=== PATIENT | female | born 1955 | race Caucasian/White ===

== ENCOUNTER 2022-08-15 09:55 | Outpatient (CLI) | payer MEDICARE, BC ==
[2022-08-15 11:09] LABS: Hemoglobin 9.3 g/dL (12.0-15.5); Mean Corpuscular HGB CONC 29.9 g/dL (32.0-36.0); Mean Corpuscular Hemoglobin 24.1 pg (27.0-33.0); Mean Corpuscular Volume 80.6 fl (81.6-98.3); Platelet Count 301 10x3/uL (150-450); Red Blood Cell (RBC) Count 3.86 10x6/uL (3.90-5.03); White Blood Cell (WBC) Count 6.8 10x3/uL (3.5-10.5)
[2022-08-15 11:22] LABS: Bilirubin Neg (Negative); Blood, Urine 10 (Negative); Clarity Clear (Clear); Glucose, Urine (Dipstick) 250 mg/dL (Negative); Ketone, Urine Negative (Negative); Leukocyte Negative (Negative); Nitrite Negative (Negative); Protein, Urine (Dipstick) 30 mg/dl (Neg-Trace); Specific Gravity, Urine 1.015 (1.005-1.030); Urobilinogen Normal mg/dL (Less than 2); pH, Urine 6.5 (5.0-9.0)
== END 2022-08-15 09:56 | disposition home or self-care (01) ==
LOC: CSHLAB 09:55
PROVIDERS: ATTEND Obstetrics & Gynecology
DX: Z01.812 Encounter for preprocedural laboratory examination (principal); N83.201 Unspecified ovarian cyst, right side
CPT/HCPCS: 81003; 85027

== ENCOUNTER 2022-08-19 05:47 | Day surgery (SDC) | payer MEDICARE, BC ==
[2022-08-15 12:11] VITALS: BMI 30.1
[2022-08-19] MEDS ORDERED: Methylene Blue 50 MG/10 ML AMPUL ONE (06:30)
[2022-08-19] MEDS ORDERED: Bupivacaine HCl 0.5%/Epinephrine 1:200,000/PF 30 ml Vial ONE (06:30)
[2022-08-19] MEDS ORDERED: HYDROmorphone 0.5 MG/0.5 ML SYRINGE ONE (06:59)
[2022-08-19] MEDS ORDERED: Propofol 1,000 MG/100 ML VIAL IV ONE (06:59)
[2022-08-19] MEDS ORDERED: Rocuronium Bromide 10 MG/ML (10ML VIAL) ONE (07:01)
[2022-08-19] MEDS ORDERED: Ondansetron PF 4 MG/2 ML Vial ONE (07:01)
[2022-08-19] MEDS ORDERED: Dexamethasone 4 mg/ml Vial ONE (07:01)
[2022-08-19] MEDS ORDERED: Esmolol 100 MG/10 ML VIAL ONE (07:01)
[2022-08-19] MEDS ORDERED: Lidocaine 1% PF 5 ML VIAL ONE (07:01)
[2022-08-19] MEDS ORDERED: Clindamycin/D5W 900 mg/50 ml Premix Bag ONE (07:02)
[2022-08-19] MEDS ORDERED: SUGAMMADEX SODIUM 200 MG/2 ML VIAL ONE (08:01)
[2022-08-19] MEDS ORDERED: Ketorolac Tromethamine 30 MG/ML VIAL ONE (08:24)
[2022-08-19] MEDS ORDERED: Furosemide 20 MG/2 ML VIAL ONE (08:41)
[2022-08-19 13:02] LABS: Hemoglobin 8.8 g/dL (12.0-15.5)
== END 2022-08-19 13:55 | disposition home or self-care (01) ==
LOC: CSHSDC 05:47
PROVIDERS: ATTEND Obstetrics & Gynecology
PROC: 0UT94ZZ Resection of Uterus, Percutaneous Endoscopic Approach (ICD-10-PCS; principal; 2022-08-19)
PROC: 0UT24ZZ Resection of Bilateral Ovaries, Percutaneous Endoscopic Approach (ICD-10-PCS; 2022-08-19)
PROC: 0UT74ZZ Resection of Bilateral Fallopian Tubes, Percutaneous Endoscopic Approach (ICD-10-PCS; 2022-08-19)
DX: D27.0 Benign neoplasm of right ovary (principal); N80.03 Adenomyosis of the uterus; K66.0 Peritoneal adhesions (postprocedural) (postinfection); N95.0 Postmenopausal bleeding; Z88.0 Allergy status to penicillin; Z88.8 Allergy status to other drugs, medicaments and biological substances; I10 Essential (primary) hypertension; F32.A Depression, unspecified; Z79.899 Other long term (current) drug therapy
CPT/HCPCS: 58571; 85014; 85018; C1776; Q9968; 36415; 88305; 88307; J1100; J1170; J1885; J1940; J2405; J2704; J3490